=== PATIENT | male | born 1990 | race Caucasian/White ===

== ENCOUNTER 2024-10-11 21:46 | Emergency (ER) | payer SELFPAY ==
[~2024-10-11] VITALS: Ht 170.2 cm; Wt 79.0 kg
[2024-10-11 21:57] VITALS: O2SAT 100
[2024-10-12 00:24] LABS: BASOPHILS % 0.8 % (0.0-2.0); EOSINOPHILS % 0.3 % (0.0-5.0); HEMATOCRIT. 44.8 % (42.0-52.0); HEMOGLOBIN. 15.3 g/dL (14.0-18.0); MEAN CORPUSCULAR HEMOGLOBIN 32.6 pg (28.0-32.0); MEAN CORPUSCULAR HGB CONC 34.2 g/dL (31.0-37.0); MEAN CORPUSCULAR VOLUME 95.5 fL (80.0-94.0); MEAN PLATELET VOLUME 7.3 fl (7.4-10.4); MONOCYTES % 12.8 % (2.0-8.0); NEUTROPHILS % 56.1 % (40.0-76.0); PLATELET 371 x1000/uL (130-400); RED BLOOD CELL COUNT 4.69 mill/uL (4.7-6.1); RED CELL DISTRIBUTION WIDTH 12.8 % (11.6-14.6); WHITE BLOOD COUNT 6.5 x1000/uL (4.5-11.0)
[2024-10-12 00:30] LABS: CARBON DIOXIDE 24 mEq/L (21-32); CHLORIDE 103 mEq/L (98-107); POTASSIUM 3.8 mEq/L (3.5-5.1); SODIUM 140 mEq/L (136-145)
[2024-10-12 00:35] LABS: CREATININE 0.9 mg/dL (0.6-1.3); GLUCOSE 96 mg/dL (70-105)
[2024-10-12 00:36] LABS: UREA NITROGEN BLOOD 9 mg/dL (9-23)
[2024-10-12 00:37] LABS: ALANINE AMINOTRANSFERASE 205 IU/L (10-49); ALBUMIN 4.7 g/dL (3.2-4.8); ASPARTATE AMINOTRANSFERASE 54 IU/L (<34)
[2024-10-12 00:38] LABS: BILIRUBIN DIRECT 0.2 mg/dL (<=3.0); BILIRUBIN TOTAL 0.7 mg/dL (0.1-1.0)
[2024-10-12 00:40] LABS: ETHANOL BLOOD < 10 mg/dL (<10)
[2024-10-12] MEDS ORDERED: FAMO20TA8 MT (01:10)
[2024-10-12] MEDS ORDERED: MAG-55 MT (01:10)
[2024-10-12] MEDS: MAGNESIUM/ALUMINUM HYDROXIDE/SIMETHICONE 30ML UDC PO ONE (01:15)
[2024-10-12] MEDS: ONDANSETRON 4MG ODT PO ONE (01:15)
[2024-10-12] MEDS: FAMOTIDINE 20MG TABLET PO ONE (01:16)
[2024-10-12 01:43] VITALS: BP 124/68; PULSE 70; RESP 16; TEMP 36.89184; O2SAT 100
== END 2024-10-12 01:42 | disposition home or self-care (01) ==
LOC: ER 21:46
DX: R07.89 Other chest pain (principal); M54.50 Low back pain, unspecified; K59.00 Constipation, unspecified; F10.20 Alcohol dependence, uncomplicated; Y90.0 Blood alcohol level of less than 20 mg/100 ml
CPT/HCPCS: 80076; 80048; 80320; 83690; 85025; 36415; 99284; Q0162; Z7610; G0480